=== PATIENT | female | born 1990 | race African-American/Black ===

== ENCOUNTER 2020-06-22 09:16 | Inpatient (IN) | payer MEDICAID, SELFPAY ==
[~2020-06-22] VITALS: Ht 165.1 cm; Wt 91.2 kg
[2020-06-22] MEDS ORDERED: TERBUTALINE SULFATE 1 MG/ML VIAL SUBCUT ONE (09:45)
[2020-06-22] MEDS ORDERED: LR 1,000 ML IV ONE (09:45)
[2020-06-22] MEDS ORDERED: LR 1,000 ML IV SCH (09:45)
[2020-06-22] MEDS ORDERED: OXYTOCIN/0.9 % SODIUM CHLORIDE 1,000 ML IV SCH (09:45)
[2020-06-22 10:15] LABS: BASOPHILS % (AUTO) 0.2 % (0.0-2.0); EOSINOPHILS % (AUTO) 0.5 % (0.0-4.0); HEMATOCRIT 34.7 % (36-48); LYMPHOCYTES # (AUTO) 1.4 K/uL (1.0-5.5); LYMPHOCYTES % (AUTO) 21.6 % (20.5-51.5); MEAN CORPUSCULAR HEMOGLOBIN 31 pg (27-31); MEAN CORPUSCULAR HGB CONC 35 % (32-36); MEAN CORPUSCULAR VOLUME 91 fL (79.0-98.0); MONOCYTES # (AUTO) 0.6 K/uL (0.0-1.0); MONOCYTES % (AUTO) 8.8 % (1.7-9.3); NEUTROPHILS # (AUTO) 4.3 K/uL (1.8-7.7); NEUTROPHILS % (AUTO) 68.9 % (40.0-70.0); PLATELET COUNT (AUTO) 108 K/uL (130-430); RED BLOOD CELL COUNT(AUTO) 3.81 MIL/uL (4.2-6.2); RED CELL DISTRIBUTION WIDTH 16.6 % (9.0-15.0); WHITE BLOOD COUNT (AUTO) 6.3 K/uL (4.8-10.8)
[2020-06-22] MEDS ORDERED: DINOPROSTONE 10 MG SUPP VG ONE (10:45)
[2020-06-22 10:50] VITALS: BP_SYST 132
[2020-06-22] MEDS ORDERED: FLU VACC QS2020-21 (6 mos & up) 0.5 ML/SYRINGE I.M. PRN (11:00)
[2020-06-22] MEDS ORDERED: TEMAZEPAM 15 MG CAPSULE PO PRN (20:45)
[2020-06-23] MEDS ORDERED: DINOPROSTONE 10 MG SUPP VG ONE
[2020-06-23] MEDS ORDERED: CEFAZOLIN 2 GM IVPB PREMIX 50 ML IV ONE (13:45)
[2020-06-23] MEDS ORDERED: MORPHINE SULFATE 10MG/10ML PF AMP ONE ×2 (18:10→18:12)
[2020-06-23] MEDS ORDERED: LR 1,000 ML IV SCH (18:30)
[2020-06-23] MEDS ORDERED: OXYTOCIN/0.9 % SODIUM CHLORIDE 1,000 ML IV ONE (18:30)
[2020-06-23] MEDS ORDERED: SIMETHICONE 80 MG TAB.CHEW PO PRN (18:30)
[2020-06-23] MEDS ORDERED: LANOLIN 7 GM OINT. TP PRN (18:30)
[2020-06-23] MEDS ORDERED: BISACODYL 10 MG/SUPPOSITORY RC PRN (18:30)
[2020-06-23] MEDS ORDERED: OXYCODONE/ACETAMINOPHEN 5-325 TABLET PO PRN (18:30)
[2020-06-23] MEDS ORDERED: OXYTOCIN 10 UNIT/ML VIAL IM ONE (18:30)
[2020-06-23] MEDS ORDERED: DOCUSATE SODIUM 100 MG CAPSULE PO PRN (18:30)
[2020-06-23] MEDS ORDERED: ANUSOL 1 EA SUPP.RECT (PREPARATION H) RC PRN (18:30)
[2020-06-23] MEDS ORDERED: OXYTOCIN 10 UNIT/ML VIAL ONE (18:31)
[2020-06-23] MEDS ORDERED: ONDANSETRON HCL 4 MG/2 ML VIAL IVP PRN (18:45)
[2020-06-23] MEDS ORDERED: KETOROLAC TROMETHAMINE 60 MG/2 ML VIAL IM PRN (18:45)
[2020-06-23] MEDS ORDERED: MORPHINE SULFATE 10MG/10ML PF AMP SP SCH (18:45)
[2020-06-23] MEDS ORDERED: fentaNYL CITRATE/PF 100 MCG/2 ML AMP IVP PRN ×2 (18:45)
[2020-06-23] MEDS ORDERED: NALBUPHINE HCL 10 MG/ML AMP IVP PRN (18:45)
[2020-06-23] MEDS ORDERED: NALOXONE HCL 0.4 MG/ML AMP (NARCAN) IVP PRN ×2 (18:45)
[2020-06-23] MEDS ORDERED: DIPHENHYDRAMINE INJ 50 MG/ML VIAL IVP PRN (18:45)
[2020-06-23 18:58] VITALS: BP_SYST 111
[2020-06-23] MEDS ORDERED: TEMAZEPAM 15 MG CAPSULE PO PRN (21:00)
[2020-06-24] MEDS: KETOROLAC TROMETHAMINE 30 MG VIAL IVP PRN ×2 (05:52→13:45)
[2020-06-24 10:23] LABS: BASOPHILS % (AUTO) 0.1 % (0.0-2.0); EOSINOPHILS % (AUTO) 0.1 % (0.0-4.0); HEMATOCRIT 25.6 % (36-48); LYMPHOCYTES # (AUTO) 0.9 K/uL (1.0-5.5); LYMPHOCYTES % (AUTO) 13.6 % (20.5-51.5); MEAN CORPUSCULAR HEMOGLOBIN 33 pg (27-31); MEAN CORPUSCULAR HGB CONC 35 % (32-36); MEAN CORPUSCULAR VOLUME 93 fL (79.0-98.0); MONOCYTES # (AUTO) 0.6 K/uL (0.0-1.0); MONOCYTES % (AUTO) 9.1 % (1.7-9.3); NEUTROPHILS # (AUTO) 5.3 K/uL (1.8-7.7); NEUTROPHILS % (AUTO) 77.1 % (40.0-70.0); PLATELET COUNT (AUTO) 81 K/uL (130-430); RED BLOOD CELL COUNT(AUTO) 2.76 MIL/uL (4.2-6.2); RED CELL DISTRIBUTION WIDTH 16.6 % (9.0-15.0); WHITE BLOOD COUNT (AUTO) 6.9 K/uL (4.8-10.8)
[2020-06-24] MEDS: IBUPROFEN 800 MG TABLET PO PRN ×2 (18:11→23:47)
[2020-06-24] MEDS: OXYCODONE/ACETAMINOPHEN 5-325 TABLET PO PRN (20:20)
[2020-06-25] MEDS: OXYCODONE/ACETAMINOPHEN 5-325 TABLET PO PRN (02:10)
[2020-06-25] MEDS: IBUPROFEN 800 MG TABLET PO PRN (06:00)
== END 2020-06-25 12:28 | disposition home or self-care (01) | DRG 540 ==
LOC: SPU 09:16
PROVIDERS: ADMIT Obstetrics & Gynecology; ATTEND Obstetrics & Gynecology
PROC: 10D00Z1 Extraction of Products of Conception, Low, Open Approach (ICD-10-PCS; principal; 2020-06-23 18:00)
DX: O24.429 Gestational diabetes mellitus in childbirth, unspecified control (principal); O99.12 Other diseases of the blood and blood-forming organs and certain disorders involving the immune mechanism complicating childbirth; O99.02 Anemia complicating childbirth; D69.6 Thrombocytopenia, unspecified; D57.1 Sickle-cell disease without crisis; Z20.828 Contact with and (suspected) exposure to other viral communicable diseases; Z3A.37 37 weeks gestation of pregnancy; Z37.0 Single live birth; O75.89 Other specified complications of labor and delivery
CPT/HCPCS: 36415; 82947-TC; 82962; 85025; 86592; 86886; 86900; 86901; J0690; J1885; J2274; J2405; J2590